=== PATIENT | female | born 1960 | race Caucasian/White ===

== ENCOUNTER → 2021-04-05 | Outpatient (CLI) | payer OTHER ==
--- NOTE | 2021-04-05 16:25 | RAD ---
EXAM: AP, lateral and open-mouth odontoid views of the cervical spine DATE: 04/05/2021 1:48 PM CLINICAL HISTORY: Neck pain COMPARISON: None available. FINDINGS: On the lateral view, the cervical spine is imaged from the skull base to C7. Vertebral body heights are preserved. Mild C5-6 disc height loss. Mild multilevel facet degenerative changes. Mild decreased bone mineral density. No acute fracture. No spondylolisthesis. Normal predental space. No significant prevertebral soft tissue swelling. No offset of the lateral ma sses of C1 on C2. IMPRESSION: 1. No acute fracture or subluxation. 2. Multilevel degenerative changes most prominent at C5-6. Electronically signed by: Johnny Bhatti MD (04/05/2021 4:23 PM) [email or web address]
--- NOTE | 2021-04-05 16:26 | RAD ---
EXAM: AP, lateral and lumbosacral spot views of the lumbar spine DATE: 04/05/2021 1:48 PM INDICATION: Reason: CHRONIC BACK PAIN. TINGLING SENSATION IN FINGERS. SCIATIC NEURALGIA. / Spl. Instr uctions: / History: COMPARISON: No Prior FINDINGS: Vertebral body heights are preserved. 5 nonrib-bearing lumbar type to bodies. No acute fracture. Mode rate L5-S1 disc height loss. Moderate facet degenerative change L4-5 and L5-S1. Vascular calcificatio ns are seen. No spondylolisthesis. IMPRESSION: 1. Negative acute fracture or subluxation. 2. Mild L5-S1 disc height loss Electronically signed by: Johnny Bhatti MD (04/05/2021 4:24 PM) [email or web address]
== END ==
LOC: RAD 13:29
PROVIDERS: ATTEND Nurse Practitioner Family
DX: M47.817 Spondylosis without myelopathy or radiculopathy, lumbosacral region (principal); M51.37 Other intervertebral disc degeneration, lumbosacral region; M47.812 Spondylosis without myelopathy or radiculopathy, cervical region; M50.322 Other cervical disc degeneration at C5-C6 level; G57.00 Lesion of sciatic nerve, unspecified lower limb; R20.2 Paresthesia of skin
CPT/HCPCS: 72040; 72100